=== PATIENT | female | born 1945 | race Caucasian/White ===

== ENCOUNTER → 2020-05-15 | Outpatient (CLI) | payer MEDICARE, SELFPAY ==
[2020-05-15 09:07] VITALS: BP 111/64; PULSE 101; RESP 18; TEMP 36.6; O2SAT 100; BMI 26.1
[2020-05-15 13:20] VITALS: BP 96/53; PULSE 92; RESP 16; TEMP 36.3; O2SAT 100
[2020-05-15 13:35] VITALS: BP 95/55; PULSE 90; RESP 16; TEMP 36.3; O2SAT 99
[2020-05-15 14:35] VITALS: BP 92/55; PULSE 89; RESP 16; TEMP 36.3
[2020-05-15 15:10] VITALS: BP 102/66; PULSE 90; RESP 16; TEMP 36.8; O2SAT 98
== END | disposition home or self-care (01) ==
PROVIDERS: PCP Family Medicine
DX: C56.2 Malignant neoplasm of left ovary (principal); C56.1 Malignant neoplasm of right ovary; D64.81 Anemia due to antineoplastic chemotherapy
CPT/HCPCS: 36430; 86850; 86900; 86901; 86920; 86922; J7040; P9016; A4216

== ENCOUNTER → 2020-06-04 | Outpatient (CLI) | payer MEDICARE, SELFPAY ==
[2020-05-15 09:07] VITALS: BMI 26.1
[2020-06-04 12:12] VITALS: BP 110/66; PULSE 65; RESP 20; TEMP 36.2; BMI 25.7
[2020-06-04] MEDS: DiphenhydrAMINE 25 MG Capsule PO (12:28)
[2020-06-04] MEDS: Acetaminophen 325 MG Tablet 650 MG PO (12:28)
[2020-06-04 13:19] VITALS: BP 86/60; PULSE 85; RESP 16; TEMP 36.7; O2SAT 98
[2020-06-04 15:34] VITALS: BP 88/64; PULSE 86; RESP 16; TEMP 35.5; O2SAT 96
[2020-06-04 15:55] VITALS: BP 89/56; PULSE 86; RESP 16; TEMP 36.8; O2SAT 98
[2020-06-04 16:55] VITALS: BP 83/64; PULSE 81; RESP 16; TEMP 36.7
[2020-06-04 17:36] VITALS: BP 92/67; PULSE 83; RESP 16; TEMP 36.5; O2SAT 96
== END | disposition home or self-care (01) ==
LOC: MEDOUTP 11:54
PROVIDERS: PCP Family Medicine
DX: D64.9 Anemia, unspecified (principal); C56.1 Malignant neoplasm of right ovary; C56.2 Malignant neoplasm of left ovary
CPT/HCPCS: 36415; 36430; 86850; 86900; 86901; 86920; 86922; J7040; P9016; A4216